=== PATIENT | male | born 1965 | race Two or more races ===

== ENCOUNTER 2020-04-07 11:09 | Emergency (ER) | payer SELFPAY ==
[~2020-04-07] VITALS: Ht 182.9 cm; Wt 80.0 kg
[2020-04-07 11:13] VITALS: BP 181/101
--- NOTE | 2020-04-07 11:28 | NUR ---
PT YELLING UPON ARRIVAL TO ED VIA [facility]. PT NOT PARTICIPATING IN ASSESSMENT. FLIGHT OF IDEAS. INAPPROPRIATE TO SITUATION AND ENVIRONMENT.
[2020-04-07 11:46] LABS: BASOPHILS # (AUTO) 0.02 x10^3/uL (0-0.1); BASOPHILS % (AUTO) 0 % (0-1); EOSINOPHILS # (AUTO) 0.03 x10^3/uL (0-0.4); EOSINOPHILS % (AUTO) 0 % (1-7); LYMPHOCYTES # (AUTO) 0.82 x10^3/uL (1-3.4); LYMPHOCYTES % (AUTO) 10 % (22-44); MD NO; MEAN CORPUSCULAR HGB CONC 33.4 g/dL (33.2-36.2); MEAN PLATELET VOLUME 6.6 fL (7.4-10.4); MONOCYTES # (AUTO) 0.69 x10^3/uL (0.2-0.8); MONOCYTES % (AUTO) 8 % (2-9); NEUTROPHILS % (AUTO) 82 % (42-75); PLATELET COUNT 427 x10^3/uL (130-400); RED BLOOD COUNT 3.93 x10^6/uL (4.38-5.82); RED CELL DISTRIBUTION WIDTH 12.8 % (9.4-14.8)
[2020-04-07 11:59] LABS: ALANINE AMINOTRANSFERASE 18 U/L (12-78); ALBUMIN 3.4 g/dL (3.4-5.0); ANION GAP 10 mmol/L (5-15); CALCIUM 8.8 mg/dL (8.5-10.1); CHLORIDE 105 mmol/L (98-107); CREATININE 1.18 mg/dL (0.7-1.3)
[2020-04-07 12:09] LABS: ALKALINE PHOSPHATASE 83 U/L (45-117); BILIRUBIN,TOTAL 0.7 mg/dL (0.2-1.0); TOTAL PROTEIN 7.8 g/dL (6.4-8.2)
[2020-04-07 12:10] LABS: SALICYLATE LEVEL < 1.7 mg/dL (2.8-20.0)
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
== END 2020-04-07 13:08 | disposition left against medical advice (07) ==
LOC: ED 11:30
DX: F23 Brief psychotic disorder (principal); Z91.14 Patient's other noncompliance with medication regimen
CPT/HCPCS: 80053; 80307; 82962; 84443; 85025; 99283